=== PATIENT | male | born 1965 | race African-American/Black ===

== ENCOUNTER 2019-10-20 15:41 | Inpatient (IN) | payer OTHER ==
[~2019-10-20] VITALS: Ht 180.3 cm; Wt 113.4 kg
[2019-10-20] MEDS ORDERED: SODIUM CHLORIDE 0.9% 1,000 ML IV ONE (16:05)
[2019-10-20] MEDS ORDERED: TETANUS, DIPHTHERIA, PERTUSSIS VAC/PF 0.5ML (>7YR OLD) IM ONE (16:15)
[2019-10-20] MEDS ORDERED: BACITRACIN ZINC OINT UDPKT TOP ONE (16:15)
[2019-10-20 16:27] LABS: BASOPHILS % 0.7 % (0.0-2.0); EOSINOPHILS % 0.1 % (0.0-5.0); HEMATOCRIT. 46.9 % (42.0-52.0); LYMPHOCYTES % 16.9 % (20.0-50.0); MEAN CORPUSCULAR HEMOGLOBIN 31.8 pg (28.0-32.0); MEAN CORPUSCULAR VOLUME 93.4 fL (80.0-94.0); MEAN PLATELET VOLUME 10.1 fl (7.4-10.4); MONOCYTES % 4.5 % (2.0-8.0); NEUTROPHILS % 77.8 % (40.0-76.0); PLATELET 205 x1000/uL (130-400); RED BLOOD CELL COUNT 5.02 mill/uL (4.7-6.1); RED CELL DISTRIBUTION WIDTH 15.1 % (11.6-14.6)
[2019-10-20 16:32] LABS: CHLORIDE 108 mEq/L (98-107)
[2019-10-20 16:33] LABS: INR 1.1; PROTHROMBIN TIME 11.4 sec (9.6-11.0)
[2019-10-20 16:47] LABS: ETHANOL BLOOD 339 mg/dL
[2019-10-20] MEDS ORDERED: SODIUM CHLORIDE 0.9% 1000ML BAG (SEPSIS BOLUS) IV ONE (17:00)
[2019-10-20] MEDS ORDERED: PIPERACILLIN/TAZ 3.375G PREMIX 50 ML IV ONE ×2 (17:00→17:45)
[2019-10-20 17:33] LABS: CLARITY URINE CLEAR (CLEAR); COLOR URINE YELLOW (YELLOW); KETONES URINE NEGATIVE (NEGATIVE); LEUKOCYTE ESTERASE URINE NEGATIVE (NEGATIVE); NITRITE URINE NEGATIVE (NEGATIVE); OCCULT BLOOD URINE 2+ (NEGATIVE); PROTEIN URINE 2+ (NEGATIVE); SPECIFIC GRAVITY URINE 1.013 (1.005-1.030); UROBILINOGEN URINE 0.2 E.U./dL (0.2-1.0)
[2019-10-20] MEDS ORDERED: PIPERACILLIN/TAZ 3.375G PREMIX 50 ML IV NR (17:45)
[2019-10-20 17:46] LABS: *BARBITURATES SCREEN URINE NEGATIVE (NEGATIVE)
[2019-10-20 17:47] LABS: *AMPHETAMINES SCREEN URINE NEGATIVE (NEGATIVE); *BENZODIAZEPINES SCREEN URINE NEGATIVE (NEGATIVE); *COCAINE SCREEN URINE NEGATIVE (NEGATIVE); OPIATES URINE SCREEN NEGATIVE (NEGATIVE); PHENCYCLIDINE URINE SCREEN NEGATIVE (NEGATIVE)
[2019-10-20 17:48] LABS: CANNABINOID URINE SCREEN NEGATIVE (NEGATIVE)
[2019-10-20 17:49] LABS: METHADONE URINE SCREEN NEGATIVE (NEGATIVE)
[2019-10-20] MEDS ORDERED: PIPERACILLIN/TAZOBACTAM 3.375 G in DEXT 5% WATER 100 ML IV SCH (18:45)
[2019-10-20] MEDS ORDERED: CLONIDINE 0.2MG TABLET PO NR (20:00)
[2019-10-20] MEDS ORDERED: IOHEXOL-350 100 ML BOTTLE ONE (21:34)
[2019-10-20 22:35] VITALS: BP 182/108
[2019-10-20] MEDS ORDERED: MORPHINE SULFATE 2 MG/ML CPJ (NOT FOR IM USE) IV PRN (22:45)
[2019-10-20] MEDS ORDERED: ENOXAPARIN 40MG/0.4ML SYR SUBCUT SCH (22:45)
[2019-10-20] MEDS ORDERED: HYDROCODONE/ACETAMINOPHEN 5/325MG TABLET PO PRN (22:45)
[2019-10-20] MEDS ORDERED: ONDANSETRON HCL 4MG/2ML INJ IV PRN (22:45)
[2019-10-20] MEDS ORDERED: CLONIDINE 0.1MG TABLET PO PRN (22:45)
[2019-10-20] MEDS ORDERED: IPRATROPIUM/ALBUTEROL 0.5-3(2.5)MG/3ML NEB HHN PRN (22:45)
[2019-10-20] MEDS ORDERED: ACETAMINOPHEN 325MG TABLET PO PRN (22:45)
[2019-10-20] MEDS: ENOXAPARIN 30MG/0.3ML SYR SUBCUT SCH (23:00)
[2019-10-20] MEDS ORDERED: HYDRALAZINE 20MG/ML VIAL IV PRN (23:00)
[2019-10-20] MEDS ORDERED: MVI, ADULT NO.1 10 ML, FOLIC ACID 1 MG, THIAMINE HCL 100 MG in SODIUM CHLORIDE 0.9% 1,0... IV SCH ×4 (23:00)
[2019-10-21] VITALS (7 sets, daily range): BP systolic 164–196; BP diastolic 89–102
[2019-10-21] MEDS ORDERED: LOSA50TA41 MT (00:24)
[2019-10-21] MEDS ORDERED: ASPI-1497 PO (00:24)
[2019-10-21] MEDS ORDERED: GABA-290 MT (00:24)
[2019-10-21] MEDS ORDERED: AMLO10TA80 MT (00:24)
[2019-10-21] MEDS ORDERED: CLON0.2T MT (00:24)
[2019-10-21] MEDS ORDERED: MVI, ADULT NO.1 10 ML, FOLIC ACID 1 MG, THIAMINE HCL 100 MG in SODIUM CHLORIDE 0.9% 1,0... IV NR ×4 (01:00)
[2019-10-21 06:34] LABS: BASOPHILS % 0.9 % (0.0-2.0); EOSINOPHILS % 0.2 % (0.0-5.0); HEMATOCRIT. 42.2 % (42.0-52.0); HEMOGLOBIN. 14.3 g/dL (14.0-18.0); LYMPHOCYTES % 25.2 % (20.0-50.0); MEAN CORPUSCULAR HEMOGLOBIN 31.4 pg (28.0-32.0); MEAN CORPUSCULAR VOLUME 92.9 fL (80.0-94.0); MEAN PLATELET VOLUME 10.8 fl (7.4-10.4); MONOCYTES % 9.6 % (2.0-8.0); NEUTROPHILS % 64.1 % (40.0-76.0); PLATELET 129 x1000/uL (130-400); RED BLOOD CELL COUNT 4.54 mill/uL (4.7-6.1)
[2019-10-21 07:15] LABS: CHLORIDE 107 mEq/L (98-107)
[2019-10-21 07:34] LABS: LDL CHOLESTEROL 35 mg/dL (5-100)
[2019-10-21 07:36] LABS: HDL CHOLESTEROL 47 mg/dL (40-59); T4 FREE 0.82 ng/dL (0.76-1.46)
[2019-10-21 08:01] LABS: CREATINE KINASE 4117 IU/L (39-308)
[2019-10-21] MEDS: LORAZEPAM 2MG/ML CPJ IV PRN ×2 (08:49→13:50)
[2019-10-21] MEDS: THIAMINE HCL 100MG TABLET PO SCH (08:50)
[2019-10-21] MEDS: AMLODIPINE 10MG TABLET PO SCH (08:50)
[2019-10-21] MEDS: ENOXAPARIN 30MG/0.3ML SYR SUBCUT SCH ×2 (08:51→21:00)
[2019-10-21] MEDS ORDERED: MAGNESIUM 2 G PREMIX 50 ML IV SCH (12:00)
[2019-10-21] MEDS: ASPIRIN 81MG EC TABLET PO SCH (13:50)
[2019-10-21] MEDS: HYDRALAZINE HCL 50MG TABLET PO SCH ×2 (13:51→21:01)
[2019-10-21] MEDS ORDERED: METOPROLOL TARTRATE 25MG TABLET PO SCH (14:00)
[2019-10-21] MEDS ORDERED: LEVOFLOXACIN 500MG PREMIX 100 ML IV SCH (17:00)
[2019-10-21] MEDS: SODIUM CHLORIDE 0.45% 1,000 ML IV SCH (17:03)
[2019-10-21 17:08] LABS: HEPATITIS B SURFACE ANTIGEN NEGATIVE
[2019-10-21] MEDS: NEOMY SULF/BACITRAC ZN/POLY OINT 28GM TOP SCH ×2 (17:28→22:36)
[2019-10-21] MEDS: MULTIVITAMINS,THER W-MINERALS TABLET PO SCH (17:28)
[2019-10-21] MEDS: LOSARTAN POTASSIUM 50 MG TABLET PO SCH (17:28)
[2019-10-21] MEDS: FOLIC ACID 1MG TABLET PO SCH (17:29)
[2019-10-21 17:38] LABS: HEPATITIS A AB IGM NEGATIVE (NEGATIVE)
[2019-10-21] MEDS ORDERED: MAGNESIUM 2 G PREMIX 50 ML IV ONE (21:00)
[2019-10-21] MEDS: CLONIDINE 0.2MG TABLET PO SCH (21:01)
[2019-10-21] MEDS: METOPROLOL TARTRATE 25MG TABLET PO SCH (22:35)
[2019-10-22] VITALS: BP 158/84
[2019-10-22 04:00] VITALS: BP 155/97
[2019-10-22] MEDS: HYDRALAZINE HCL 50MG TABLET PO SCH (06:09)
[2019-10-22 06:46] LABS: HEMOGLOBIN 13.7 g/dL (14.0-18.0); MEAN CORPUSCULAR HEMOGLOBIN 31.6 pg (28.0-32.0); MEAN CORPUSCULAR VOLUME 92.3 fL (80.0-94.0); PLATELET 99 x1000/uL (130-400); RED BLOOD CELL COUNT 4.33 mill/uL (4.7-6.1); RED CELL DISTRIBUTION WIDTH 14.8 % (11.6-14.6)
[2019-10-22 06:54] LABS: CHLORIDE 106 mEq/L (98-107)
[2019-10-22 07:00] LABS: PHOSPHORUS 3.1 mg/dL (2.5-4.9)
[2019-10-22 08:00] VITALS: BP 150/92
[2019-10-22] MEDS: ENOXAPARIN 30MG/0.3ML SYR SUBCUT SCH (09:00)
[2019-10-22] MEDS ORDERED: AMLODIPINE 10MG TABLET PO SCH (09:00)
[2019-10-22] MEDS: SODIUM CHLORIDE 0.45% 1,000 ML IV SCH (09:10)
[2019-10-22] MEDS: AMLODIPINE 10MG TABLET PO SCH (09:37)
[2019-10-22] MEDS: METOPROLOL TARTRATE 25MG TABLET PO SCH (09:38)
[2019-10-22] MEDS: FOLIC ACID 1MG TABLET PO SCH (09:38)
[2019-10-22] MEDS: ASPIRIN 81MG EC TABLET PO SCH (09:38)
[2019-10-22] MEDS: MULTIVITAMINS,THER W-MINERALS TABLET PO SCH (09:38)
[2019-10-22] MEDS: THIAMINE HCL 100MG TABLET PO SCH (09:38)
[2019-10-22] MEDS: LOSARTAN POTASSIUM 50 MG TABLET PO SCH (09:38)
[2019-10-22] MEDS: CLONIDINE 0.2MG TABLET PO SCH (09:51)
[2019-10-22 12:00] VITALS: BP 141/85
[2019-10-22 15:30] VITALS: BP 141/85
[2019-10-22] MEDS ORDERED: LOSARTAN POTASSIUM 50 MG TABLET PO SCH (21:00)
[2019-10-27 04:06] LABS: INFLUENZA A AB CF Negative (Neg:<1:8); INFLUENZA B AB CF 1:16 (Neg:<1:8)
== END 2019-10-22 18:13 | disposition home or self-care (01) | DRG 74 ==
LOC: ER 15:41 → 7WST 17:34 → ENRESERV 17:46
PROVIDERS: ADMIT Internal Medicine; ATTEND Internal Medicine
DX: G90.8 Other disorders of autonomic nervous system (principal); I47.2 Ventricular tachycardia; E87.2 Acidosis; I42.9 Cardiomyopathy, unspecified; M47.816 Spondylosis without myelopathy or radiculopathy, lumbar region; D69.6 Thrombocytopenia, unspecified; E83.42 Hypomagnesemia; R16.0 Hepatomegaly, not elsewhere classified; M47.818 Spondylosis without myelopathy or radiculopathy, sacral and sacrococcygeal region; E86.0 Dehydration; I10 Essential (primary) hypertension; I77.810 Thoracic aortic ectasia; Y90.8 Blood alcohol level of 240 mg/100 ml or more; F10.10 Alcohol abuse, uncomplicated; D16.8 Benign neoplasm of pelvic bones, sacrum and coccyx; M16.0 Bilateral primary osteoarthritis of hip; I27.20 Pulmonary hypertension, unspecified; I25.10 Atherosclerotic heart disease of native coronary artery without angina pectoris; S80.211A Abrasion, right knee, initial encounter; X58.XXXA Exposure to other specified factors, initial encounter; Y93.89 Activity, other specified; Z98.1 Arthrodesis status; Y92.89 Other specified places as the place of occurrence of the external cause; I25.2 Old myocardial infarction; Y99.8 Other external cause status; Z71.41 Alcohol abuse counseling and surveillance of alcoholic
CPT/HCPCS: 36415; 71045; 71275; 73562; 74174; 80053; 80061; 80305; 80320; 81003; 82140; 82550; 83605; 83735; 83880; 84100; 84132; 84145; 84439; 84443; 84484; 85025; 85027; 85379; 86705; 86709; 86710; 86803; 87340; 90715; 93005; 93306; 93880; 93970; 97162; 99291; J1650; J1956; J2060; J2270; J2405; J2543; J3411; J3475; J3490; J7030; J7060; Q9967; G0480

== ENCOUNTER 2023-10-25 10:53 | Inpatient (IN) | payer SELFPAY ==
[~2023-10-25] VITALS: Ht 182.9 cm; Wt 119.7 kg
[~2023-10-25 10:53] MED LIST: AMLO10TA80 MT; ASPI-1497 PO; CLON0.2T MT; GABA-290 MT; LOSA50TA41 MT
[2023-10-25] MEDS ORDERED: ENALAPRIL 2.5MG/2ML VIAL 2ML IV ONE (11:00)
[2023-10-25 11:37] LABS: BASOPHILS % 1.2 % (0.0-2.0); EOSINOPHILS % 0.5 % (0.0-5.0); HEMATOCRIT. 42.7 % (42.0-52.0); LYMPHOCYTES % 17.7 % (20.0-50.0); MEAN CORPUSCULAR HEMOGLOBIN 30.2 pg (28.0-32.0); MEAN CORPUSCULAR HGB CONC 32.7 g/dL (31.0-37.0); MEAN CORPUSCULAR VOLUME 92.3 fL (80.0-94.0); MONOCYTES % 12.5 % (2.0-8.0); NEUTROPHILS % 68.1 % (40.0-76.0); RED BLOOD CELL COUNT 4.63 mill/uL (4.7-6.1); RED CELL DISTRIBUTION WIDTH 17.8 % (11.6-14.6); WHITE BLOOD COUNT 6.5 x1000/uL (4.5-11.0)
[2023-10-25 11:49] LABS: DIFFERENTIAL COMMENT 1
[2023-10-25 11:53] LABS: ALANINE AMINOTRANSFERASE 60 IU/L (10-49); ALBUMIN 3.5 g/dL (3.2-4.8); ASPARTATE AMINOTRANSFERASE 59 IU/L (<34); BILIRUBIN TOTAL 1.1 mg/dL (0.1-1.0); CALCIUM 8.3 mg/dL (8.7-10.4); CARBON DIOXIDE 28 mEq/L (21-32); CHLORIDE 97 mEq/L (98-107); CREATININE 1.4 mg/dL (0.6-1.3); GLUCOSE 125 mg/dL (70-105); POTASSIUM 4.4 mEq/L (3.5-5.1); SODIUM 133 mEq/L (136-145); UREA NITROGEN BLOOD 17 mg/dL (9-23)
[2023-10-25 11:57] LABS: TROPONIN I HIGH SENSITIVITY 73 ng/L (3.0-53)
[2023-10-25] MEDS: FUROSEMIDE 40MG/4ML VIAL IVP ONE (12:32)
[2023-10-25] MEDS: ENALAPRIL 1.25MG/ML VIAL 1ML IV NR (12:32)
[2023-10-25] MEDS ORDERED: IPRATROPIUM/ALBUTEROL 0.5-3(2.5)MG/3ML NEB HHN PRN (14:45)
[2023-10-25] MEDS ORDERED: ONDANSETRON HCL 4MG/2ML INJ IV PRN (14:45)
[2023-10-25] MEDS ORDERED: DIPHENHYDRAMINE 50MG/ML VIAL IV PRN (14:45)
[2023-10-25] MEDS: FUROSEMIDE 40MG/4ML VIAL IV SCH (16:36)
[2023-10-25] MEDS: HYDRALAZINE 20MG/ML VIAL IV PRN (16:37)
[2023-10-25] MEDS: CLONIDINE 0.1MG TABLET PO PRN (16:37)
[2023-10-25] MEDS: LABETALOL 5MG/ML SYR 20 MG/4 ML SYRINGE IV NR (18:27)
[2023-10-25] MEDS ORDERED: NICARDIPINE 40MG/200ML PREMIX 200 ML IV PRN ×2 (19:15)
[2023-10-25] MEDS: ACETAMINOPHEN 325MG TABLET PO PRN (21:50)
[2023-10-25] MEDS: NICARDIPINE 50 MG in SODIUM CHLORIDE 0.9% 250 ML IV PRN (22:06)
[2023-10-26 00:08] LABS: TROPONIN I HIGH SENSITIVITY 80 ng/L (3.0-53)
[2023-10-26 14:54] VITALS: BP 135/96; PULSE 68; RESP 20; TEMP 98.2
[2023-10-26 16:07] VITALS: BP 138/87; PULSE 66; RESP 18; TEMP 98
[2023-10-26 16:26] LABS: HEMATOCRIT. 42.6 % (42.0-52.0); HEMOGLOBIN. 13.8 g/dL (14.0-18.0); MEAN CORPUSCULAR HEMOGLOBIN 30.4 pg (28.0-32.0); MEAN CORPUSCULAR HGB CONC 32.4 g/dL (31.0-37.0); MEAN CORPUSCULAR VOLUME 93.8 fL (80.0-94.0); MEAN PLATELET VOLUME 11.7 fl (7.4-10.4); PLATELET 165 x1000/uL (130-400); RED BLOOD CELL COUNT 4.54 mill/uL (4.7-6.1); RED CELL DISTRIBUTION WIDTH 18.1 % (11.6-14.6); WHITE BLOOD COUNT 4.7 x1000/uL (4.5-11.0)
[2023-10-26 16:27] LABS: DIFFERENTIAL COMMENT 1
[2023-10-26 16:45] LABS: ALANINE AMINOTRANSFERASE 55 IU/L (10-49); ALBUMIN 3.4 g/dL (3.2-4.8); ASPARTATE AMINOTRANSFERASE 65 IU/L (<34); BILIRUBIN TOTAL 1.2 mg/dL (0.1-1.0); CALCIUM 8.6 mg/dL (8.7-10.4); CARBON DIOXIDE 30 mEq/L (21-32); CHLORIDE 101 mEq/L (98-107); CREATININE 1.3 mg/dL (0.6-1.3); GLUCOSE 99 mg/dL (70-105); POTASSIUM 3.9 mEq/L (3.5-5.1); PROTEIN TOTAL 6.6 g/dL (6.0-8.3); SODIUM 139 mEq/L (136-145); UREA NITROGEN BLOOD 17 mg/dL (9-23)
[2023-10-26 16:52] LABS: TROPONIN I HIGH SENSITIVITY 64 ng/L (3.0-53)
[2023-10-26 16:59] LABS: PLATELET ESTIMATE NORMAL
[2023-10-26] MEDS ORDERED: IPRATROPIUM/ALBUTEROL 0.5-3(2.5)MG/3ML NEB HHN PRN (18:30)
[2023-10-26 20:00] VITALS: BP 152/78; PULSE 117; RESP 20; TEMP 100.6
[2023-10-26] MEDS: ENOXAPARIN 30MG/0.3ML SYR SUBCUT SCH (21:59)
[2023-10-26] MEDS: AMLODIPINE 5MG TABLET PO SCH (21:59)
[2023-10-27] VITALS: BP 149/72; PULSE 79; RESP 18; TEMP 97.7
[2023-10-27 04:00] VITALS: BP 138/77; PULSE 67; RESP 17; TEMP 98.1
[2023-10-27 07:15] LABS: HEMATOCRIT. 41.3 % (42.0-52.0); HEMOGLOBIN. 13.7 g/dL (14.0-18.0); MEAN CORPUSCULAR HEMOGLOBIN 30.8 pg (28.0-32.0); MEAN CORPUSCULAR HGB CONC 33.2 g/dL (31.0-37.0); MEAN CORPUSCULAR VOLUME 92.7 fL (80.0-94.0); RED BLOOD CELL COUNT 4.46 mill/uL (4.7-6.1); RED CELL DISTRIBUTION WIDTH 18.7 % (11.6-14.6); WHITE BLOOD COUNT 4.3 x1000/uL (4.5-11.0)
[2023-10-27 07:29] LABS: CALCIUM 7.9 mg/dL (8.7-10.4); CARBON DIOXIDE 31 mEq/L (21-32); CHLORIDE 101 mEq/L (98-107); CREATININE 1.3 mg/dL (0.6-1.3); GLUCOSE 85 mg/dL (70-105); POTASSIUM 3.7 mEq/L (3.5-5.1); SODIUM 137 mEq/L (136-145); UREA NITROGEN BLOOD 16 mg/dL (9-23)
[2023-10-27 07:36] LABS: DIFFERENTIAL COMMENT 1
[2023-10-27 08:00] VITALS: BP 135/92; PULSE 72; RESP 17; TEMP 97.6
[2023-10-27 09:02] LABS: ANISOCYTOSIS 1+
[2023-10-27 09:04] LABS: GIANT PLATELETS 1+
[2023-10-27 09:21] LABS: MEAN PLATELET VOLUME 12.4 fl (7.4-10.4); PLATELET 134 x1000/uL (130-400)
[2023-10-27 12:00] VITALS: BP 135/92; PULSE 79; RESP 16; TEMP 97.3
[2023-10-27 12:19] LABS: CLARITY URINE CLEAR (CLEAR); COLOR URINE YELLOW (YELLOW); GLUCOSE URINE NEGATIVE (NEGATIVE); KETONES URINE NEGATIVE (NEGATIVE); LEUKOCYTE ESTERASE URINE NEGATIVE (NEGATIVE); NITRITE URINE NEGATIVE (NEGATIVE); OCCULT BLOOD URINE NEGATIVE (NEGATIVE); PH URINE 8.5 (4.5-8.0); PROTEIN URINE NEGATIVE (NEGATIVE); SPECIFIC GRAVITY URINE 1.007 (1.005-1.030)
[2023-10-27 14:58] LABS: *AMPHETAMINES SCREEN URINE NEGATIVE (NEGATIVE); *BARBITURATES SCREEN URINE NEGATIVE (NEGATIVE); *BENZODIAZEPINES SCREEN URINE NEGATIVE (NEGATIVE); *COCAINE SCREEN URINE NEGATIVE (NEGATIVE); CANNABINOID URINE SCREEN NEGATIVE (NEGATIVE); ECSTASY MDMA SCREEN URINE NEGATIVE (NEGATIVE); METHADONE URINE SCREEN Neg (NEGATIVE); OPIATES URINE SCREEN NEGATIVE (NEGATIVE); PHENCYCLIDINE URINE SCREEN NEGATIVE (NEGATIVE)
[2023-10-27 16:00] VITALS: BP 131/97; PULSE 97; RESP 16; TEMP 97.5
[2023-10-27 20:00] VITALS: BP 136/91; PULSE 75; RESP 19; TEMP 97.9
[2023-10-28] VITALS: BP 140/82; PULSE 81; RESP 19; TEMP 97.9
[2023-10-28 04:00] VITALS: BP 158/93; PULSE 82; RESP 18; TEMP 97.7
[2023-10-28 07:36] LABS: HEMATOCRIT. 41.9 % (42.0-52.0); HEMOGLOBIN. 13.8 g/dL (14.0-18.0); MEAN CORPUSCULAR HEMOGLOBIN 30.5 pg (28.0-32.0); MEAN CORPUSCULAR HGB CONC 32.9 g/dL (31.0-37.0); MEAN CORPUSCULAR VOLUME 92.9 fL (80.0-94.0); MEAN PLATELET VOLUME 12.3 fl (7.4-10.4); PLATELET 160 x1000/uL (130-400); RED BLOOD CELL COUNT 4.51 mill/uL (4.7-6.1); RED CELL DISTRIBUTION WIDTH 18.9 % (11.6-14.6); WHITE BLOOD COUNT 4.3 x1000/uL (4.5-11.0)
[2023-10-28 07:38] LABS: DIFFERENTIAL COMMENT 1
[2023-10-28 07:45] LABS: CALCIUM 8.6 mg/dL (8.7-10.4); CARBON DIOXIDE 26 mEq/L (21-32); CHLORIDE 102 mEq/L (98-107); CREATININE 1.2 mg/dL (0.6-1.3); GLUCOSE 87 mg/dL (70-105); SODIUM 137 mEq/L (136-145); UREA NITROGEN BLOOD 16 mg/dL (9-23)
[2023-10-28 08:00] VITALS: BP 164/102; PULSE 50; RESP 18; TEMP 97.7
[2023-10-28 08:51] LABS: THYROID STIMULATING HORMONE 2.71 uIU/mL (0.55-4.78)
[2023-10-28 12:00] VITALS: BP 149/103; PULSE 96; RESP 14; TEMP 98
[2023-10-28] MEDS ORDERED: AMOX1TAB16 MT (12:24)
[2023-10-28] MEDS ORDERED: COR3 PO (12:25)
[2023-10-28] MEDS ORDERED: FURO40TA5 PO (12:25)
[2023-10-28 16:00] VITALS: BP 150/98; PULSE 67; RESP 18; TEMP 97.7
[2023-10-28 16:24] LABS: ANISOCYTOSIS 2+; PLATELET ESTIMATE NORMAL
[2023-10-28 17:21] VITALS: BP 149/103; PULSE 96; TEMP 98; O2SAT 95
[2023-10-28] MEDS ORDERED: CARVEDILOL 3.125 MG TABLET PO SCH (21:00)
[2023-10-29] MEDS ORDERED: FUROSEMIDE 40MG TABLET PO SCH (09:00)
== END 2023-10-28 18:45 | disposition home or self-care (01) | DRG 194 ==
LOC: ER 11:03 → EDBEDREQTM 12:35 → EDBEDREQ 12:35 → EDBEDREQSVC 19:07 → 7EST 10-26 12:53
PROVIDERS: ADMIT Internal Medicine; ATTEND Internal Medicine
DX: I11.0 Hypertensive heart disease with heart failure (principal); J96.01 Acute respiratory failure with hypoxia; N17.9 Acute kidney failure, unspecified; I50.21 Acute systolic (congestive) heart failure; I16.0 Hypertensive urgency; Z91.148 Patient's other noncompliance with medication regimen for other reason; J98.11 Atelectasis; J32.8 Other chronic sinusitis; F17.210 Nicotine dependence, cigarettes, uncomplicated; E78.5 Hyperlipidemia, unspecified; I25.10 Atherosclerotic heart disease of native coronary artery without angina pectoris; I25.2 Old myocardial infarction; I34.0 Nonrheumatic mitral (valve) insufficiency
CPT/HCPCS: 36415; 71045; 80048; 80053; 80305; 81003; 83880; 84145; 84443; 84481; 84484; 85025; 93005; 93306; 93970; 99285; J0360; J1650; J1940; J3490